=== PATIENT | male | born 1965 | race Caucasian/White ===

== ENCOUNTER 2019-11-05 12:11 | Emergency (ER) | payer OTHER ==
[2019-11-05] MEDS ORDERED: DEXAMETHASONE SOD PHOSPHATE 10 MG/ML 1 ML VIAL IM STA (12:56)
[2019-11-05] MEDS ORDERED: KETOROLAC 30 MG/ML 1 ML VIAL IM STA (12:56)
--- NOTE | 2019-11-05 13:03 | ED ---
General Adult HPI - General Chief complaint: Wound/Laceration Stated complaint: incision problems/left shoulder & arm pain Time Seen by Provider: 11/05/19 12:29 Source: patient, RN notes reviewed, old records reviewed Mode of arrival: ambulatory Limitations: no limitations - History of Present Illness Initial comments: Patient is a 54-year-old male who presents emergency department today for concern for some drainage and scabbing over his incision site over his neck. He had C6 and C7 fusion in December [place]. Patient reports that his own is some abrasion and drainage and the incision site for the past 2 weeks. He denies any fevers or chills. He denies any neck pain with range of motion. He reports that on Tuesday morning after waking up he noted that his left hand seems to have decreased strength. He has had previous ulnar nerve repair surgery many years ago as well. Patient states that he has some diminished sensation over the third fourth and fifth digit. He denies any headache, visual changes, fevers, chills. He denies any chest pain, shortness of breath. He states that he does have full range of motion of the hand that seems to be weaker over his fifth and fourth digit. He denies any elbow pain or shoulder pain and reports full range of motion of the elbow and shoulder. - Related Data Previous Rx's Medication Instructions Recorded Cyclobenzaprine [Flexeril] 10 mg PO TID #12 tab 11/05/19 Ibuprofen [Motrin] 600 mg PO Q6HR PRN #20 tab 11/05/19 predniSONE [Deltasone] 20 mg PO DIRECTED #12 tab 11/05/19 Allergies Allergy/AdvReac Type Severity Reaction Status Date / Time Penicillins Allergy Rash/Hives Verified 11/05/19 12:18 Review of Systems ROS Statement: Those systems with pertinent positive or pertinent negative responses have been documented in the HPI. ROS Other: All systems not noted in ROS Statement are negative. Past Medical History Past Medical History: No Reported History History of Any Multi-Drug Resistant Organisms: MRSA Date of last positivie culture/infection: 10 years ago MDRO Source:: elbow Additional Past Surgical History / Comment(s): neck fusion, knee surgery, left arm surgery Past Psychological History: No Psychological Hx Reported Smoking Status: Current every day smoker Past Alcohol Use History: None Reported Past Drug Use History: Marijuana General Exam - General Exam Comments Initial Comments: Well-appearing 54-year-old male. No distress. Limitations: no limitations General appearance: alert, in no apparent distress Head exam: Present: atraumatic, normocephalic, normal inspection Eye exam: Present: normal appearance, PERRL, EOMI. Absent: scleral icterus, conjunctival injection, periorbital swelling ENT exam: Present: normal exam, mucous membranes moist Respiratory exam: Present: normal lung sounds bilaterally, other (well appearing incision over neck ). Absent: respiratory distress, wheezes, rales, rhonchi, stridor Cardiovascular Exam: Present: regular rate, normal rhythm, normal heart sounds. Absent: systolic murmur, diastolic murmur, rubs, gallop, clicks GI/Abdominal exam: Present: soft Left Shoulder Exam: Present: normal inspection, full ROM Upper Arm exam: Present: normal inspection, full ROM Elbow exam: Present: normal inspection, full ROM, other (well appearing incisoin over medial elbow from ulnar nerve surgery repair) Forearm Wrist exam: Present: normal inspection, full ROM, tenderness Hand Wrist exam: Present: normal inspection, full ROM (patient does have full ROM but decreased camera mechanic strength over ulnar nerve distribution) Neuro motor exam: Present: wrist extension intact, thumb opposition intact, thumb IP flexion intact, thumb adduction intact, fingers 2-5 abduction intact Neurosensory exam: Absent: ulnar nerve intact (diminished sensation over 3-5 digit ) Vascular: Present: normal capillary refill Back exam: Present: normal inspection Neurological exam: Present: alert, oriented X3, CN II-XII intact Course Vital Signs 11/05/19 11/05/19 12:12 13:21 Temperature 98.1 F 97.6 F Pulse Rate 65 62 Respiratory 18 17 Rate Blood Pressure 155/65 155/97 O2 Sat by Pulse 100 98 Oximetry Medical Decision Making - Medical Decision Making 54-year-old male presents emergency department today for concern for drainage incision site on the neck. On exam he has an abrasion with no active drainage. No induration or erythema. He also woke up on Tuesday morning with complaints of decreased strength over the left hand after sleeping on his arm abnormally. Patient seems to have an ulnar nerve palsy as he is diminished and station in the ulnar nerve distribution as well as decreased strength over the fourth fifth and third digit. He has had previous ulnar nerve problems in the past and had surgery to repair this years ago. At this time had Dr. Jovel also examined the Patient and agrees with findings. Patient will be started on steroids to help with nerve inflammation and advise close follow-up with veterinary milk specialist. Discussed return parameters. 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 Please follow up with family doctor if symptoms have not improved over the next two days. Please return to the emergenc y room if your symptoms increase or worsen or for any other concerns. Prescriptions: predniSONE [Deltasone] 20 mg PO DIRECTED #12 tab Cyclobenzaprine [Flexeril] 10 mg PO TID #12 tab Ibuprofen [Motrin] 600 mg PO Q6HR PRN #20 tab PRN Reason: Pain Is patient prescribed a controlled substance at d/c from ED?: No Referrals: Nonstaff,Physician [Primary Care Provider] - 1-2 days Tigre Babb DO [Doctor of Osteopathic Medicine] - 1-2 days Chau Forrest MD [Medical Doctor] - 1-2 days Time of Disposition: 13:02
[2019-11-05 13:22] VITALS: BP 155/97; PULSE 62; RESP 17; TEMP 97.6
== END 2019-11-05 13:34 | disposition home or self-care (01) ==
LOC: EC 12:11
DX: G56.22 Lesion of ulnar nerve, left upper limb (principal); S10.81XA Abrasion of other specified part of neck, initial encounter; F17.200 Nicotine dependence, unspecified, uncomplicated; Z88.0 Allergy status to penicillin; Z86.14 Personal history of Methicillin resistant Staphylococcus aureus infection; Z98.1 Arthrodesis status; Z98.890 Other specified postprocedural states; X58.XXXA Exposure to other specified factors, initial encounter
CPT/HCPCS: 99283; 96372 ×2; J1100; J1885

== ENCOUNTER 2020-07-10 10:23 | Emergency (ER) | payer OTHER ==
--- NOTE | 2020-07-10 11:22 | XR ---
EXAMINATION TYPE: XR lumbosacral spine min 4V DATE OF EXAM: 07/10/2020 CLINICAL HISTORY: Low back pain. TECHNIQUE: Frontal, lateral, and oblique images of the lumbar spine are obtained. COMPARISON: None FINDINGS: There are 5 lumbar type vertebral bodies identified. The lumbar spine shows levoconvex sc oliotic curvature centered at lumbosacral junction on frontal images. There is slight grade 1 retroli sthesis L2 on L3 and L3 on L4. Vertebral body heights are maintained. Moderate disc space narrowing w ith vacuum disc phenomenon L5-S1 level with mild to moderate anterior spurring. Mild disc space narro wing with moderate anterior spurring L4-L5 level. Additional mild to moderate disc space narrowing L3 -L4 level. Oblique images appear within normal limits. Overlying soft tissue is unremarkable. IMPRESSION: As above.
[2020-07-10] MEDS ORDERED: ACET/COD 300 MG/30 MG STARTER PACK 6 TAB BTL PO STA (12:05)
--- NOTE | 2020-07-10 12:05 | ED ---
Back Pain HPI - General Chief Complaint: Back Pain/Injury Stated Complaint: Back Pain Time Seen by Provider: 07/10/20 10:47 Source: patient, RN notes reviewed Limitations: no limitations - History of Present Illness Initial Comments: 54-year-old male presents emergency from chief complaint low back pain. This is a chronic issue nature. Patient denies any recent injuries but states pain is gotten slightly worse. He states she's had 2 prior cervical surgeries though he states his orthopedic spine surgeon move. Patient states that he was told he needed surgery on his back but has not had any recent imaging. He denies any bowel bladder incontinence or retention or saddle anesthesias. His slight pain areas to his right hip but no pain further in that. No discoloration of his lower extremities. Patient states he also has diffuse joint pain which is not present currently states his happened once while. Denies chest pain shortness breath no fevers chills no redness. - Related Data Previous Rx's Medication Instructions Recorded Cyclobenzaprine [Flexeril] 10 mg PO TID PRN #15 tab 07/10/20 Ibuprofen [Motrin] 600 mg PO Q8HR PRN #20 tab 07/10/20 predniSONE 50 mg PO DAILY #5 tab 07/10/20 Allergies Allergy/AdvReac Type Severity Reaction Status Date / Time Penicillins Allergy Rash/Hives Verified 07/10/20 11:27 Review of Systems ROS Statement: Those systems with pertinent positive or pertinent negative responses have been documented in the HPI. ROS Other: All systems not noted in ROS Statement are negative. Past Medical History Past Medical History: No Reported History Additional Past Medical History / Comment(s): chronic neck and back pain History of Any Multi-Drug Resistant Organisms: MRSA Date of last positivie culture/infection: 10 years ago MDRO Source:: elbow Additional Past Surgical History / Comment(s): neck fusion, knee surgery, left arm surgery Past Psychological History: No Psychological Hx Reported Smoking Status: Current every day smoker Past Alcohol Use History: None Reported Past Drug Use History: Marijuana General Exam Limitations: no limitations General appearance: alert, in no apparent distress Head exam: Present: atraumatic, normocephalic, normal inspection ENT exam: Present: normal exam, mucous membranes moist Neck exam: Present: full ROM. Absent: normal inspection (Old surgical scars noted), tenderness, meningismus, lymphadenopathy Respiratory exam: Present: normal lung sounds bilaterally. Absent: respiratory distress, wheezes, rales, rhonchi, stridor Cardiovascular Exam: Present: regular rate, normal rhythm, normal heart sounds. Absent: systolic murmur, diastolic murmur, rubs, gallop, clicks GI/Abdominal exam: Present: soft, normal bowel sounds. Absent: distended, tenderness, guarding, rebound, rigid Extremities exam: Present: normal inspection, full ROM, normal capillary refill, other (Lower extremity strength equal bilaterally neurovascular intact equal color equal warmth). Absent: tenderness, pedal edema, joint swelling, calf tenderness Back exam: Present: normal inspection, full ROM, tenderness (Lumbar paraspinal), paraspinal tenderness. Absent: vertebral tenderness Neurological exam: Present: alert, oriented X3, CN II-XII intact. Absent: motor sensory deficit Skin exam: Present: warm, dry, intact, normal color. Absent: rash Course Vital Signs 07/10/20 10:30 Temperature 98.7 F Pulse Rate 79 Respiratory 18 Rate Blood Pressure 147/105 O2 Sat by Pulse 93 L Oximetry Medical Decision Making - Medical Decision Making Patient x-ray reviewed no acute NE there is chronic degenerative severe changes he has no red flag symptoms he is able to ambulate with no difficulty in the room. Patient be discharged in stable condition with follow-up with on-call orthopedics. Disposition Clinical Impression: Lumbar degenerative disc disease, Lumbar and sacral spondylarthritis Disposition: HOME SELF-CARE Condition: Stable Instructions (If sedation given, give patient instructions): Lumbar Radiculopathy (ED), Chronic Back Pain (DC) Additional Instructions: Please return to the Emergency Department if symptoms worsen or any other concerns. Prescriptions: Cyclobenzaprine [Flexeril] 10 mg PO TID PRN #15 tab PRN Reason: Muscle Spasm Ibuprofen [Motrin] 600 mg PO Q8HR PRN #20 tab PRN Reason: Pain predniSONE 50 mg PO DAILY #5 tab Is patient prescribed a controlled substance at d/c from ED?: No Referrals: Nonstaff,Physician [Primary Care Provider] - 1-2 days Tigre Babb DO [Doctor of Osteopathic Medicine] - 1-2 days Time of Disposition: 12:05
[2020-07-10 12:21] VITALS: BP 140/88; PULSE 72; RESP 19; TEMP 98.4
== END 2020-07-10 12:21 | disposition home or self-care (01) ==
LOC: EC 10:23
DX: M51.36 Other intervertebral disc degeneration, lumbar region (principal); M47.816 Spondylosis without myelopathy or radiculopathy, lumbar region; M47.818 Spondylosis without myelopathy or radiculopathy, sacral and sacrococcygeal region; F17.200 Nicotine dependence, unspecified, uncomplicated; Z88.0 Allergy status to penicillin
CPT/HCPCS: 72110; 99283

== ENCOUNTER 2020-10-25 09:34 | Emergency (ER) | payer OTHER ==
[2020-10-25 09:42] VITALS: BP 159/107; PULSE 78; RESP 18; TEMP 98
--- NOTE | 2020-10-25 10:06 | ED ---
Upper Extremity HPI - General Chief Complaint: Extremity Injury, Upper Stated Complaint: Right elbow pain Time Seen by Provider: 10/25/20 09:50 Source: patient, RN notes reviewed Mode of arrival: ambulatory Limitations: no limitations - History of Present Illness Initial Comments: 55-year-old male presents emergency Department with chief complaint of right shoulder elbow pain. Patient states he's had a multiple lipomas removed states a large amount up by his right shoulder causing discomfort and pain in his right elbow. Patient's pain is always worse with certain movements especially extension, pronation supination. 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 ROS Other: All systems not noted in ROS Statement are negative. Past Medical History Past Medical History: No Reported History Additional Past Medical History / Comment(s): chronic neck and back pain History of Any Multi-Drug Resistant Organisms: MRSA Date of last positivie culture/infection: 10 years ago MDRO Source:: L elbow Past Surgical History: Back Surgery Additional Past Surgical History / Comment(s): neck fusion, knee surgery, left arm surgery Past Psychological History: No Psychological Hx Reported Smoking Status: Current every day smoker Past Alcohol Use History: None Reported Past Drug Use History: Marijuana General Exam Limitations: no limitations General appearance: alert, in no apparent distress Head exam: Present: atraumatic, normocephalic, normal inspection Neck exam: Present: normal inspection, full ROM. Absent: tenderness, meningismus, lymphadenopathy Respiratory exam: Present: normal lung sounds bilaterally. Absent: respiratory distress, wheezes, rales, rhonchi, stridor Cardiovascular Exam: Present: regular rate, normal rhythm, normal heart sounds. Absent: systolic murmur, diastolic murmur, rubs, gallop, clicks Extremities exam: Present: other (Right shoulder there is a large lipoma just lateral of the AC joint. Neurovascular intact upper extremities with forward motion mild discomfort pain with extension pronation supination of the right elbow stripe matcher strength is equal bilaterally) Course Vital Signs 10/25/20 09:36 Temperature 98 F Pulse Rate 78 Respiratory 18 Rate Blood Pressure 159/107 O2 Sat by Pulse 97 Oximetry Medical Decision Making - Medical Decision Making X-rays show evidence of lipoma versus ganglion cyst the right shoulder over the acromion, there is some tendinopathy of the right elbow. Patient we discharged her steroids and follow-up with orthopedics return parameters were discussed. Disposition Clinical Impression: Right elbow tendinitis, Lipoma of right shoulder Disposition: HOME SELF-CARE Condition: Stable Instructions (If sedation given, give patient instructions): Tendinitis (ED) Additional Instructions: Please return to the Emergency Department if symptoms worsen or any other concerns. Prescriptions: predniSONE 50 mg PO DAILY #5 tab Is patient prescribed a controlled substance at d/c from ED?: No Referrals: None,Stated [Primary Care Provider] - 1-2 days Adrian Jaimes MD [STAFF PHYSICIAN] - 1-2 days Time of Disposition: 10:33
--- NOTE | 2020-10-25 10:28 | XR ---
EXAMINATION TYPE: XR shoulder complete 3 views RT, XR elbow complete 3 views RT DATE OF EXAM: 10/25/2020 Comparison: None Clinical History: 55-year-old male pain Findings: Shoulder: Prominent marginal spurring at the AC joint with severe joint space noted. A 1 cm bone fragment is lo cated along the superior aspect of the joint. There is a 4 cm focal protuberance overlying the acromi on relative low density. Subacromial space is preserved. Mild sclerosis of the greater tuberosity. Mi nimal joint is intact. ACDF hardware. Visualized right hemithorax is clear. No acute fracture or disl ocation. Right elbow: Some minimal osseous density measuring up to 4 mm projecting in the soft tissues of the common extens or tendon origin. No elbow joint effusion. No acute fracture, subluxation, or dislocation. Impression: Right shoulder: 1. Severe AC joint OA. Either a 1 cm chronically fragmented spur versus loose body along the superior aspect of the joint. Inferior spurring near can contribute to subacromial impingement. 2. Some sclerosis of the greater tuberosity can be seen with chronic rotator cuff tendinopathy. 3. 4 cm focal soft tissue protuberance overlying the acromion. Consider lipoma or large ganglion cyst from underlying degenerative shoulder pathology. MRI if clinically indicated. Right elbow: 1. Small osseous densities at the lateral soft tissues compatible with chronic extensor tendinopathy. 2. No acute osseous abnormality seen.
== END 2020-10-25 10:41 | disposition home or self-care (01) ==
LOC: EC 09:34
DX: M77.8 Other enthesopathies, not elsewhere classified (principal); D17.21 Benign lipomatous neoplasm of skin and subcutaneous tissue of right arm; F17.200 Nicotine dependence, unspecified, uncomplicated; F12.90 Cannabis use, unspecified, uncomplicated; Z88.0 Allergy status to penicillin
CPT/HCPCS: 99283

== ENCOUNTER → 2020-11-28 | Outpatient (CLI) | payer OTHER ==
--- NOTE | 2020-11-28 14:44 | XR ---
EXAMINATION TYPE: XR orbit detect foreign body DATE OF EXAM: 11/28/2020 COMPARISON: NONE HISTORY: Pre-MRI metal clearance TECHNIQUE: 3 views orbits FINDINGS: No definite radiopaque densities overlie the orbits. IMPRESSION: No definite radiopaque densities overlie the orbits.
== END | disposition home or self-care (01) ==
LOC: RADMRIMAIN 13:49
PROVIDERS: ATTEND Orthopaedic Surgery
DX: Z01.818 Encounter for other preprocedural examination (principal)
CPT/HCPCS: 70030

== ENCOUNTER → 2021-06-05 | Outpatient (CLI) | payer OTHER ==
--- NOTE | 2021-06-05 20:46 | CT ---
EXAMINATION TYPE: CT cervical spine wo con CT DLP: 588.30 mGycm, Automated exposure control for dose reduction was used. DATE OF EXAM: 06/05/2021 4:14 PM COMPARISON: None. CLINICAL INDICATION:Male, 55 years old with history of M54.2 CERVICALGIA, Cervicalgia, c/o bilateral extremity pain. Hx sx/hardware TECHNIQUE: Axial CT images from the skull base to the inferior aspect of T2 we obtained without intra venous contrast. Coronal and sagittal reformatted images were also reviewed. FINDINGS: Evaluation is limited due to streak artifact at the levels of the cervical fixation hardwar e. Fracture: None. Osseous structures: There is anterior fixation hardware involving C4-C7. Hardware appears intact. Inv olving the posterior aspects of C3-C7 also present and appears intact. Mild degenerative changes are seen throughout the cervical spine. Vertebral alignment: Postsurgical alignment. Spinal canal/Neural Foramina: No evidence of significant spinal canal narrowing. No evidence of signi ficant neural foramina narrowing. Neck soft tissues: Prevertebral soft tissues are within normal limits. Other: The airway is patent. The lung apices are clear. Mucosal thickening of the maxillary sinuses l eft greater than right. IMPRESSION: 1. No evidence of cervical spine fracture. 2. Spinal fixation changes with hardware intact.
== END | disposition home or self-care (01) ==
LOC: RADCTMAIN 15:04
PROVIDERS: ATTEND Orthopaedic Surgery
DX: M54.2 Cervicalgia (principal)
CPT/HCPCS: 72125

== ENCOUNTER → 2022-01-11 | Outpatient (CLI) | payer OTHER ==
[2022-01-11 11:43] VITALS: BP 168/97; PULSE 67; RESP 18; TEMP 98.4
--- NOTE | 2022-01-11 12:39 | P.PAINPG ---
PQRS Measure Charge Sheet Comment: HISTORY OF PRESENT ILLNESS: 56 yr old male as a referral from Dr. Jones presents today w severe and chronic neck pain secondary to spondylosis, DDD and facet arthropathy without myelopathy for evaluation. Pt states his pain level is currently at 10/10 in intensity, constant, pinching/grinding in character w shooting towards BL shoulders and BUEs. Pain has unknown provocative factors. Pain is relieved with medications (Neurontin), Lidoderm, heat, repositioning and rest. Pt only wants narcotics. He is unimpressed that he had to complete MRIs, calling it "the run around all the while I'm still in pain" and stated no doctor or hospital has been trying to help him. He admits to using cannabis for pain and that he gets [place] "from a friend" and did not want to change the aforementioned by the Narcotic agreement guidelines. He walked out of the exam room yelling "idiots" before discussion of treatment plan. PMH: No Reported History PSH: Anterior C4-C7 Cervical Fusion (2012, 2018), Knee Surgery, L Elbow Debridement SH: Daily tobacco use, No ETOH abuse, +Cannabis use FH: Non contributory All: PCN Meds: See list REVIEW OF ORGAN SYSTEMS: CONSTITUTIONAL: No fevers or chills. No recent weight loss. NEUROLOGICAL: + numbness and tingling along the distal extremities. No seizure disorders or headaches. MUSCULOSKELETAL: + pain PSYCHIATRIC: Denies current depression or suicidal thoughts. Physical Examinations : Constitutional : Cooperative , not in acute distress . Neurologic : Cranial nerve II to XII intact. No focal neurological deficits. Psychiatric : alert & oriented x 3. Matching mood & appropriate affect. Judgment & insight intact. Musculoskeletal : Cervical Spine Motor strength in the deltoid and bi ceps: Normal right side. Normal Left side Motor strength biceps and the wrist extensors: Normal right side . Normal left side Motor strength in the triceps muscle: Normal right side. Normal left side Deep tendon reflexes: Normal at the biceps. Normal at Brachioradialis. Normal at triceps Vertebral body tenderness to deep palpation over Cervical facet loading test: positive bilaterally Spurling test: positive bilaterally Neck distraction test: positive bilaterally Silvia sign: positive bilaterally Lumbar spine Motor strength lower extremities ,thigh and legs 5/5 Right side , 5/5 Left side Deep tendon reflexes : Normal Knee Jerk. Normal Ankle Jerk Vertebral body tenderness over Lumbar facet Loading Test: positive Right / positive Left Range of motion of the lumbar spine Flexion 30 degrees, extension 10 degrees Straight Leg Raise test: Left/ Right positive at degree Shelbi test: positive right / positive left. Severe tenderness over the Sacroiliac joint on the Right / Left sides Gaenslen test: positive bilaterally Seated flexion test: positive bilaterally. Sacral spine : Severe tenderness over the Sacroiliac joint: right side / left side Range of motion: Flexion of the lumbar spine <60 degrees Range of motion: Extension of the lumbar spine <20 degrees Gaenslen's Test positive Dustin's Test positive Shelbi test: positive right side / left side Thigh Thrust Test Sacral Thrust Test Imaging: CT without contrast of the cervical spine from 06/06/20 reviewed Assessment/ Plan : Cervical DDD All questions answered. I have spent greater than 30 minutes on patient care today. Dr Smith was available by phone for the evaluation of this patient. The time was used to review the medical records including relevant urine studies and Prescription history (MAPs), review of the available imaging, evaluation and examination of the patient, coordination of care with the medical staff and if applicable referring physicians, as well as creation of the medical record PQRS Narrative: Smoking Status Current every day smoker Home Medications: Ambulatory Orders Ibuprofen [Motrin] 600 mg PO Q8HR PRN #20 tab 07/10/20 Controlled Substance Measures - Controlled Substance Measures Is patient prescribed a controlled substance at discharge?: No
== END ==
LOC: PNWHC3 10:59
PROVIDERS: ATTEND Specialist
DX: M50.10 Cervical disc disorder with radiculopathy, unspecified cervical region (principal); F17.200 Nicotine dependence, unspecified, uncomplicated; Z88.0 Allergy status to penicillin
CPT/HCPCS: 99211

== ENCOUNTER → 2022-12-28 | Outpatient (CLI) | payer OTHER ==
--- NOTE | 2022-12-28 09:48 | CT ---
EXAMINATION TYPE: CT lumbar spine wo con CT DLP: 774.4 mGycm, Automated exposure control for dose reduction was used. 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 Soft tissue and bone windows in coronal and sagittal planes were obtained and reviewed. Oral co ntrast used: none. FINDINGS: Alignment: There are 5 lumbar type vertebral bodies within normal alignment. Bone: No evidence of fracture is identified. Multilevel disc degeneration changes with vacuum disc p henomena, osteophytes and disc space tearing. Facet joint arthropathy seen throughout the spine. The spinous processes are in pseudoarticulation with each other. Discs: T12-L1: No spinal canal or neural foraminal stenosis is identified. L1-L2: No spinal canal or neural foraminal stenosis is identified. L2-L3: Facet joint arthropathy with moderate bilateral neural foraminal stenosis. Disc bulge present with mild spinal canal stenosis. L3-L4: Facet joint arthropathy with moderate bilateral neural foraminal stenosis. Disc bulge present with mild spinal canal stenosis. L4-L5: Moderate to severe bilateral neural foraminal stenosis right greater than left secondary to f acet joint arthropathy. Disc bulge present with mild spinal canal stenosis. L5-S1: Moderate to severe bilateral neural foraminal stenosis right greater than left secondary to fa cet joint arthropathy. Other: Scattered colonic diverticula. Mild atherosclerosis of the arterial vasculature. IMPRESSION: 1. No evidence for spinal fracture. No evidence for significant spinal canal stenosis. 2. Multilevel degeneration changes worse at L4-L5 and L5-S1 with moderate to severe right neural fora hamida stenosis at these levels. 3. Findings suggestive of Baastrup's disease.
== END | disposition home or self-care (01) ==
LOC: RADCTMAIN 08:40
PROVIDERS: ATTEND Orthopaedic Surgery
DX: M51.16 Intervertebral disc disorders with radiculopathy, lumbar region (principal); M47.26 Other spondylosis with radiculopathy, lumbar region; M99.73 Connective tissue and disc stenosis of intervertebral foramina of lumbar region; M48.061 Spinal stenosis, lumbar region without neurogenic claudication
CPT/HCPCS: 72131